=== PATIENT | female | born 1950 | race Caucasian/White ===

== ENCOUNTER 2023-11-07 05:31 | Inpatient (IN) | payer MEDICARE, OTHER ==
[~2023-11-07] VITALS: Ht 167.6 cm; Wt 70.3 kg
[2023-11-07 06:25] VITALS: BP 130/76; TEMP 97.7; O2SAT 98
[2023-11-07] MEDS ORDERED: Magnesium 1 GM/2 ML VIAL ONE (07:24)
[2023-11-07] MEDS ORDERED: OXYMETAZOLINE HCL NASAL SPRAY 30 ML BOTTLE NS ONE (07:24)
[2023-11-07] MEDS ORDERED: KETAMINE HCL (500MG/10ML) 50 MG/ML VIAL ONE (07:24)
[2023-11-07] MEDS ORDERED: FENTANYL PF 100MCG/2ML AMPUL ONE (07:24)
[2023-11-07] MEDS ORDERED: LANOLIN/MIN OIL/PETROLAT,WHT 3.5 GM TUBE ONE (07:24)
[2023-11-07] MEDS ORDERED: ROCURONIUM BROMIDE 50 MG/5 ML ONE ×2 (07:25→08:14)
[2023-11-07] MEDS ORDERED: FAMOTIDINE/PF INJ 20 MG/2 ML VIAL IV ONE (07:25)
[2023-11-07] MEDS ORDERED: dexaMETHasone SOD PHOSPHATE 1 ML ONE (07:35)
[2023-11-07] MEDS ORDERED: LIDOCAINE 2%-EPI 1:100,000 30 ML VIAL ONE (07:35)
[2023-11-07] MEDS ORDERED: VANCOMYCIN 1 GM VIAL ONE (07:35)
[2023-11-07] MEDS ORDERED: CELLULOSE,OXIDIZED 1 PKT EACH MC ONE ×2 (07:53→10:00)
[2023-11-07] MEDS ORDERED: CELLULOSE,OXIDIZED 1 EA PACK MC ONE (07:56)
[2023-11-07] MEDS ORDERED: HYDROMORPHONE INJ 2 MG/ML DISP.SYRIN ONE (08:16)
[2023-11-07] MEDS ORDERED: LABETALOL HCL IV 100MG VIAL ONE (08:32)
[2023-11-07 11:00] VITALS: BP 137/74; TEMP 97; O2SAT 96
[2023-11-07] MEDS ORDERED: ACETAMINOPHEN 325 MG TABLET PO PRN (11:30)
[2023-11-07] MEDS ORDERED: IV NS 0.9% 1,000 ML IV PRN (11:30)
[2023-11-07] MEDS ORDERED: METF-440 PO (11:59)
[2023-11-07] MEDS ORDERED: AMLO-212 PO (11:59)
[2023-11-07] MEDS ORDERED: LISI1TAB55 PO (11:59)
[2023-11-07] MEDS: HYDROMORPHONE 1 MG/1 ML DISP.SYRIN IV PRN ×4 (12:27→19:33)
[2023-11-07] MEDS: ONDANSETRON HCL/PF 4 MG/2 ML VIAL IVP PRN ×2 (12:44→17:02)
[2023-11-07 13:26] LABS: THYROID STIMULATING HORMONE 1.881 uIU/mL (0.358-3.74)
[2023-11-07 16:00] VITALS: BP 116/60; TEMP 97.6; O2SAT 95
[2023-11-07 16:02] VITALS: BP 127/64; TEMP 98.2; O2SAT 96
[2023-11-07] MEDS ORDERED: DEXTROSE 50%-WATER 50 ML DISP.SYRIN IV PRN (18:30)
[2023-11-07] MEDS: BLOOD SUGAR DIAGNOSTIC 1 EACH STRIP IN SCH ×2 (19:39→22:36)
[2023-11-07] MEDS: AMLODIPINE BESYLATE 5 MG TABLET PO SCH (19:39)
[2023-11-07] MEDS: INSULIN REGULAR, HUMAN 100 UNIT/ML 3 ML VIAL SQ PRN ×2 (19:48→22:39)
[2023-11-07 20:00] VITALS: BP 138/97; TEMP 98.1; O2SAT 97
[2023-11-07] MEDS: VANCOMYCIN 1 GM in IV D5W 250ml IV SCH (20:45)
[2023-11-08 07:23] LABS: BASOPHILS % (AUTO) 0.2 % (0.0-2.0); EOSINOPHILS % (AUTO) 0.4 % (0.0-6.0); HEMATOCRIT 29 % (33-45); HEMOGLOBIN 10.2 g/dL (11.5-14.8); LYMPHOCYTES # (AUTO) 1.3 K/uL (0.8-4.8); LYMPHOCYTES % (AUTO) 16.2 % (20.0-44.0); MEAN CORPUSCULAR HEMOGLOBIN 33 PG (26.0-33.0); MEAN CORPUSCULAR HGB CONC 35 g/dl (31.0-36.0); MEAN CORPUSCULAR VOLUME 94 fL (82-100); MONOCYTES # (AUTO) 0.8 K/uL (0.1-1.30); MONOCYTES % (AUTO) 10.1 % (2.0-12.0); NEUTROPHILS # (AUTO) 5.9 K/uL (1.8-8.9); NEUTROPHILS % (AUTO) 73.1 % (43.0-81.0); PLATELET COUNT (AUTO) 199 K/uL (150-450); RED BLOOD CELL COUNT(AUTO) 3.04 MIL/uL (4.0-5.2); RED CELL DISTRIBUTION WIDTH 13.1 % (11.5-15.0)
[2023-11-08] MEDS: BLOOD SUGAR DIAGNOSTIC 1 EACH STRIP IN SCH ×2 (07:45→11:47)
[2023-11-08] MEDS: INSULIN REGULAR, HUMAN 100 UNIT/ML 3 ML VIAL SQ PRN ×3 (07:46→12:01)
[2023-11-08 08:00] VITALS: BP 110/52; TEMP 97.8; O2SAT 97
[2023-11-08 08:09] LABS: CALCIUM, SERUM 8.8 mg/dL (8.5-10.1); CARBON DIOXIDE 26 mmol/L (21-32); CHLORIDE 101 mmol/L (98-107); CREATININE 0.9 mg/dL (0.6-1.3); GLUCOSE 119 mg/dL (74-106); MAGNESIUM 2.1 mg/dL (1.8-2.4); PHOSPHORUS 3.4 mg/dL (2.5-4.9); POTASSIUM 4.2 mmol/L (3.5-5.1); SODIUM SERUM 136 mmol/L (136-145); UREA NITROGEN, BLOOD 16 mg/dL (7-18)
[2023-11-08] MEDS: HYDROMORPHONE 1 MG/1 ML DISP.SYRIN IV PRN ×2 (08:17→15:09)
[2023-11-08] MEDS: VANCOMYCIN 1 GM in IV D5W 250ml IV SCH (08:17)
[2023-11-08 08:21] VITALS: BP 110/51
[2023-11-08] MEDS: AMLODIPINE BESYLATE 5 MG TABLET PO SCH (08:21)
[2023-11-08] MEDS ORDERED: METFORMIN 500 MG TABLET PO SCH (09:00)
[2023-11-08] MEDS ORDERED: LISINOPRIL (20MG) 20 MG TABLET PO SCH (09:00)
[2023-11-08] MEDS ORDERED: HYDROCHLOROTHIAZIDE 25 MG TABLET PO SCH (09:00)
[2023-11-08] MEDS: ONDANSETRON HCL/PF 4 MG/2 ML VIAL IVP PRN (15:13)
== END 2023-11-08 16:10 | disposition home or self-care (01) | DRG 141 ==
LOC: DS 05:31 → MED 05:32
PROVIDERS: ADMIT Nurse Practitioner Acute Care; ATTEND Nurse Practitioner Acute Care
PROC: 0NSV04Z Reposition Left Mandible with Internal Fixation Device, Open Approach (ICD-10-PCS; principal; 2023-11-07)
PROC: 0NSR04Z Reposition Maxilla with Internal Fixation Device, Open Approach (ICD-10-PCS; 2023-11-07)
PROC: 0NST04Z Reposition Right Mandible with Internal Fixation Device, Open Approach (ICD-10-PCS; 2023-11-07)
PROC: 0NBR0ZZ Excision of Maxilla, Open Approach (ICD-10-PCS; 2023-11-07)
PROC: 0NUV07Z Supplement Left Mandible with Autologous Tissue Substitute, Open Approach (ICD-10-PCS; 2023-11-07)
PROC: 0NUR07Z Supplement Maxilla with Autologous Tissue Substitute, Open Approach (ICD-10-PCS; 2023-11-07)
PROC: 0NUT07Z Supplement Right Mandible with Autologous Tissue Substitute, Open Approach (ICD-10-PCS; 2023-11-07)
PROC: 0NBV0ZX Excision of Left Mandible, Open Approach, Diagnostic (ICD-10-PCS; 2023-11-07)
PROC: 0NBT0ZX Excision of Right Mandible, Open Approach, Diagnostic (ICD-10-PCS; 2023-11-07)
DX: M27.2 Inflammatory conditions of jaws (principal); S02.69XA Fracture of mandible of other specified site, initial encounter for closed fracture; J32.9 Chronic sinusitis, unspecified; I10 Essential (primary) hypertension; E78.5 Hyperlipidemia, unspecified; X58.XXXA Exposure to other specified factors, initial encounter; Y93.9 Activity, unspecified; Y92.009 Unspecified place in unspecified non-institutional (private) residence as the place of occurrence of the external cause; D16.5 Benign neoplasm of lower jaw bone; M27.49 Other cysts of jaw; E11.69 Type 2 diabetes mellitus with other specified complication; I34.0 Nonrheumatic mitral (valve) insufficiency; Z79.84 Long term (current) use of oral hypoglycemic drugs
CPT/HCPCS: 36415; 80048-TC; 80061-TC; 82565-TC; 82962-TC; 83735-TC; 84100-TC; 84439-TC; 84443-TC; 85025-TC; 87081-TC; A4223; C1713; G0378; J1100; J1170; J1815; J2405; J2704; J2765; J3010; J3370; J3475; J3490; J7030; J7060

== ENCOUNTER → 2024-03-19 | Day surgery (SDC) | payer MEDICARE, OTHER ==
[~2024-03-19] MED LIST: ALBUMIN 5% 250 ML IV ONE; AMLO-212 PO; FAMOTIDINE/PF INJ 20 MG/2 ML VIAL IV ONE; FENTANYL PF 100MCG/2ML AMPUL ONE; LIDOCAINE 2%-EPI 1:100,000 30 ML VIAL ONE; LISI1TAB55 PO; METF-440 PO; MIDAZOLAM HCL 2 MG/2ML VIAL ONE; OXYMETAZOLINE HCL NASAL SPRAY 30 ML BOTTLE NS ONE; ROCURONIUM BROMIDE 50 MG/5 ML ONE; VANCOMYCIN 1 GM VIAL ONE; dexaMETHasone SOD PHOSPHATE 1 ML ONE
[2024-03-19 08:48] LABS: BASOPHILS % (AUTO) 0.8 % (0.0-2.0); EOSINOPHILS # (AUTO) 0.3 K/uL (0.0-0.7); EOSINOPHILS % (AUTO) 5.1 % (0.0-6.0); HEMATOCRIT 33 % (33-45); HEMOGLOBIN 11.9 g/dL (11.5-14.8); LYMPHOCYTES # (AUTO) 1.6 K/uL (0.8-4.8); LYMPHOCYTES % (AUTO) 31.4 % (20.0-44.0); MEAN CORPUSCULAR HEMOGLOBIN 33 PG (26.0-33.0); MEAN CORPUSCULAR HGB CONC 36 g/dl (31.0-36.0); MEAN CORPUSCULAR VOLUME 92 fL (82-100); MONOCYTES # (AUTO) 0.5 K/uL (0.1-1.30); MONOCYTES % (AUTO) 9.3 % (2.0-12.0); NEUTROPHILS # (AUTO) 2.7 K/uL (1.8-8.9); NEUTROPHILS % (AUTO) 53.4 % (43.0-81.0); PLATELET COUNT (AUTO) 176 K/uL (150-450); RED BLOOD CELL COUNT(AUTO) 3.63 MIL/uL (4.0-5.2); WHITE BLOOD COUNT (AUTO) 5.1 K/uL (4.3-11.0)
[2024-03-19 08:55] LABS: CALCIUM, SERUM 9.5 mg/dL (8.5-10.1); CREATININE 0.9 mg/dL (0.6-1.3); POTASSIUM 4.1 mmol/L (3.5-5.1)
[2024-03-19 09:05] LABS: ALBUMIN 3.7 g/dL (3.4-5.0); BILIRUBIN,TOTAL 0.7 mg/dL (0.2-1.0); TOTAL PROTEIN, SERUM 7.4 g/dL (6.4-8.2)
[2024-03-19 09:09] LABS: INR 1.02 (0.91-1.10); PARTIAL THROMBOPLASTIN TIME 25.8 SEC (24.3-34.3); PROTHROMBIN TIME 10.8 SECS (9.2-11.1)
== END | disposition home or self-care (01) ==
LOC: DS 07:51
PROVIDERS: ATTEND Dentist Oral and Maxillofacial Surgery
DX: T84.69XA Infection and inflammatory reaction due to internal fixation device of other site, initial encounter (principal); K09.9 Cyst of oral region, unspecified; M89.38 Hypertrophy of bone, other site; I10 Essential (primary) hypertension; E11.9 Type 2 diabetes mellitus without complications; E78.5 Hyperlipidemia, unspecified; Z98.890 Other specified postprocedural states; Z79.899 Other long term (current) drug therapy; X58.XXXA Exposure to other specified factors, initial encounter; Y93.89 Activity, other specified; Y92.89 Other specified places as the place of occurrence of the external cause; Y99.8 Other external cause status; E66.3 Overweight; Z79.82 Long term (current) use of aspirin; Z79.01 Long term (current) use of anticoagulants
CPT/HCPCS: 20680; 21040; 36415; 41826; 71045; 80053; 82962; 85025; 85730; 88305; 88311; 93005; J1100; J2250; J2405; J2704; J2765; J3010; J3370; J3490; J7030; P9045